=== PATIENT | female | born 1985 | race African-American/Black ===

== ENCOUNTER 2023-04-15 10:07 | Outpatient (REF) | payer MEDICAID, SELFPAY ==
[2023-04-15 11:07] LABS: MANUAL DIFF FLAG NO
[2023-04-15 11:27] LABS: Basophils Percent Auto 0.4 % (0-2); Eosinophils Absolute Auto 0.1 X10*3/uL (0.0-0.4); Eosinophils Percent Auto 1.5 % (0-4); Hematocrit 37.3 % (37.0-47.0); Hemoglobin 11.8 g/dl (12.0-16.0); Imm Gran Abs Auto 0.01 X10*3/uL (0.00-0.03); Imm Gran Pct Auto 0.2 % (0.0-0.4); Lymphocytes Absolute Auto 1.8 X10*3/uL (1.2-4.9); Lymphocytes Percent Auto 38.1 % (20-40); Mean Corpuscular HGB Conc 31.6 g/dl (31.0-35.0); Mean Corpuscular Hemoglobin 26.2 pg (27.0-33.0); Mean Corpuscular Volume 82.7 fL (80.0-98.0); Mean Platelet Volume 12.2 fL (9.4-12.3); Monocytes Absolute Auto 0.5 X10*3/uL (0.1-1.2); Monocytes Percent Auto 9.5 % (2-11); Neutrophils Absolute Auto 2.4 x10*3/uL (2.0-8.3); Neutrophils Percent Auto 50.3 % (45-73); Platelet Count 216 X10*3/uL (160-400); Red Blood Count 4.51 X10*6/uL (4.20-5.50); Red Cell Distribution Width 14.1 % (11.0-16.0); White Blood Count 4.8 X10*3/uL (4.8-10.8)
[2023-04-15 11:30] LABS: Estimated Average Glucose 100 mg/dL; Hemoglobin A1c % 5.1 % (<6.0)
[2023-04-15 12:37] LABS: Alanine Aminotransferase 8 U/L (0-31); Albumin Level 3.9 g/dL (3.5-5.0); Alkaline Phosphatase 57 U/L (39-117); Anion Gap 9 (12-20); Aspartate Amino Transferase 13 U/L (5-31); Bilirubin Total 0.7 mg/dL (0.0-1.0); Blood Urea Nitrogen 14 mg/dL (9-16); Calcium 8.8 mg/dL (8.4-10.2); Carbon Dioxide 25 mmol/L (22-29); Chloride 108 mmol/L (96-108); Estimated Glomerular Filt Rate > 60; Glucose Random 84 mg/dL (60-115); Potassium 3.9 mmol/L (3.3-5.1); Sodium 138 mmol/L (135-145); Total Protein 7.4 g/dL (6.5-8.0)
== END 2023-04-15 10:08 | disposition home or self-care (01) ==
LOC: HO.HHCL 10:07
PROVIDERS: Visit Provider General Practice
DX: M79.672 Pain in left foot (principal)
CPT/HCPCS: 36415; 80053; 83036; 85025

== ENCOUNTER 2023-07-30 09:39 | Outpatient (REF) | payer MEDICAID, SELFPAY ==
[2023-07-30 11:37] LABS: Anion Gap 10 (12-20); Blood Urea Nitrogen 13 mg/dL (9-16); Calcium 9.4 mg/dL (8.4-10.2); Carbon Dioxide 27 mmol/L (22-29); Chloride 107 mmol/L (96-108); Estimated Glomerular Filt Rate > 60; Glucose Random 84 mg/dL (60-115); Potassium 4.5 mmol/L (3.3-5.1); Sodium 139 mmol/L (135-145)
== END 2023-07-30 09:40 | disposition home or self-care (01) ==
LOC: HO.HHCL 09:39
PROVIDERS: Visit Provider Emergency Medicine
DX: E66.3 Overweight (principal)
CPT/HCPCS: 36415; 80048

== ENCOUNTER 2023-08-22 09:05 | Emergency (ER) | payer MEDICAID, SELFPAY ==
[2023-08-22 10:10] VITALS: BP 116/50; PULSE 105; RESP 18; TEMP 37.2; O2SAT 96; BMI 28.3
[2023-08-22 11:12] LABS: IDNOW Serial# 08D9AD1C; Strep A Nucleic Acid Positive (Negative)
[2023-08-22 11:52] LABS: Influenza A PCR NEGATIVE (Negative); Influenza B PCR NEGATIVE (Negative); Resp Syncy Virus RNA Qual PCR NEGATIVE (Negative); SARS COV2 PCR INHOUSE NEGATIVE (Negative)
--- NOTE | 2023-08-22 12:20 | ED.URI ---
HPI - URI/Sore Throat General Chief Complaint: Upper Respiratory Symptoms Stated Complaint: Headache Weakness Fever Etc Time Seen by Provider: 08/22/23 11:57 Source: patient Mode of arrival: ambulatory Limitations: no limitations and language barrier (Creole - livestock handler utilized) History of Present Illness HPI Narrative: patient is a 37-year-old female with past medical history of headache, fever, myalgias, vomiting, sore throat. Symptom onset was 3 days ago. Her is ill with similar symptoms and her children are also ill at home. Related Data Previous Rx's ?Medication ?Instructions ?Recorded amoxicillin 500 mg capsule 1,000 mg (2 x 500 mg) PO DAILY 9 08/22/23 days #18 caps Allergies Allergy/AdvReac Type Severity Reaction Status Date / Time No Known Allergies Allergy Verified 08/22/23 10:13 Review of Systems Review of Systems: Yes all other systems are reviewed and are negative [facility] Past Medical History Attestation statement: The following information was validated with the patient. Source: old records reviewed Physical Exam Vital Signs: Vital Signs: Last Vital Signs Temp 98.9 F 08/22/23 10:10 Pulse 105 H 08/22/23 10:10 Resp 18 08/22/23 10:10 BP 116/50 L 08/22/23 10:10 Pulse Ox 96 08/22/23 10:10 O2 Del Method Room Air 08/22/23 10:10 BMI result Body Mass Index 28.3 Appearance: Alert.?Oriented to person, place and time. No acute distress.?Normal affect. Eyes: Pupils equal, round and reactive to light.? ENT: TM normal bilaterally. Pharynx Erythematous with 2+ tonsillar hypertrophy bilaterally. No exudates. Uvula midline no trismus. No drooling. Neck: Normal inspection.? Neck supple.??No cervical adenopathy CVS: Heart sounds normal. Normal heart rate and rhythm.? Pulses normal.?? Respiratory: No respiratory distress.? Lung sounds clear to auscultation bilaterally?? Abdomen: Soft and non-tender. Normoactive bowel sounds. Skin: Skin warm and dry.? Normal skin color.? ? Extremities: No lower extremity edema.? Neuro: Moves all extremities spontaneously. Sensation intact bilaterally. No motor deficits. Ambulates with normal steady gait. Medical Decision Making Medical Decision Making MDM Narrative: Patient is a 37-year-old female, presenting for evaluation of upper respiratory symptoms. COVID-19 /Influenza/RSV testing negative. Strep a testing positive. Not consistent with peritonsillar retropharyngeal abscess. At this time history and physical exam not consistent with ACS/PE/pneumonia. Well-appearing, nontoxic, afebrile, no tachycardia or tachypnea/hypoxia. Speaking clear full sentences, ambulatory with steady gait. Received initial dose of antibiotic while in the emergency department, remainder prescription sent to pharmacy. Discussed conservative treatment including rest, hydration, Tylenol/ibuprofen as needed for fever and body aches, saline nasal spray, humidifier, aeds-ztx-vkhrgft cold medication. Advised to follow-up with primary care provider as needed, discussed reasons to return back to the emergency department. All questions were answered. Patient discharged home in stable condition. Differential Diagnosis Differential Diagnoses: The differential diagnosis associated with the presentation includes ( See narrative above) Admission/Observation Consideration of admission/observation: Escalation of care including admission/observation considered ( see narrative above) Lab Data MDM Lab Attestation statement: I reviewed the patient's lab results. ( see narrative above) Labs: Lab Results 08/22/23 Range/Units 10:57 Influenza Type A (PCR) NEGATIVE (Negative) Influenza Type B (PCR) NEGATIVE (Negative) RSV RNA Qual (PCR) NEGATIVE (Negative) SARS-CoV-2 RNA (RT-PCR) NEGATIVE (Negative) S. pyogenes GrpA MERRITT Positive A (Negative) Independent Historian Clinical information obtained from an independent historian. History obtained from or confirmed by: Spouse ( present who confirms history) Prescription Management I considered prescription management with: Pain Medication ( acetaminophen/ibuprofen) and Antibiotic Discharge Plan Discharge Clinical Impression: Acute streptococcal pharyngitis Patient Disposition: Home, Self-Care Instructions: Strep Throat (ED) Additional Instructions: You can take ibuprofen 200 mg, 3 tablets (600mg) every 6-8 hours as needed for pain, in addition to Tylenol 500 mg, 2 tablets (1,000mg) every 4-6 hours as needed for pain, but not to exceed 3 doses daily (3,000mg).? Complete entire course of antibiotics as prescribed. Be sure to rest, stay well hydrated drinking plenty of fluids, eat small frequent meals. Guoo-mjn-tlzqrmb cold medications may be helpful as well for symptoms. Saline nasal spray, humidifier may be helpful for nasal congestion. You may return to the emergency department with any new or worsening symptoms or concerns. Follow-up with your primary care provider as needed. Should remain out of school/ work until symptoms have resolved and have been without a fever for 24 hours without the use of Tylenol or ibuprofen. Prescriptions: New amoxicillin 500 mg capsule 1,000 mg PO DAILY 9 Days Qty: 18 0RF Referrals: Physician,None [Primary Care Provider] - Print Language: Slovenian
[2023-08-22] MEDS: Amoxicillin 500 MG CAPSULE 1000 MG PO (12:46)
[2023-08-22 13:15] VITALS: BP 94/60; PULSE 86; RESP 16; TEMP 36.9; O2SAT 97
== END 2023-08-22 13:16 | disposition home or self-care (01) ==
PROVIDERS: Nurse Practitioner Family; Emergency Provider Emergency Medicine
DX: J02.0 Streptococcal pharyngitis (principal)
CPT/HCPCS: 0241U; 87651; 99282; 99283

== ENCOUNTER 2025-03-25 11:49 | Outpatient (REF) | payer MEDICAID, SELFPAY ==
--- NOTE | ~2025-03-25 | XR_ITS ---
EXAMINATION: Bilateral foot. CLINICAL INDICATION: Bilateral foot pain. TECHNIQUE: 3 views each foot. COMPARISON: None. FINDINGS: RIGHT FOOT: Visualized tarsal, metatarsal and phalanges are normal. No fracture or bony abnormality. The joint spaces are maintained normal. The soft tissues are normal. The ankle mortise and subtalar joints are normal. A small retrocalcaneal spur. Incidental finding of a flat arch. LEFT FOOT: The ankle mortise and subtalar joint is normal. A small retrocalcaneal spur. Visualized tarsal, metatarsals and the phalanges and unremarkable. The joint spaces are maintained normal. No fracture or lytic process seen. Incidental finding of a flat arch noted. XR/XR foot RT min 3V IMPRESSION: Bilateral flat arch noted. Bilateral retrocalcaneal spurs. No visible fracture or dislocation or soft tissue swelling. Electronically signed by: Juan Hackett MD 03/25/2025 01:30 PM EST
--- NOTE | ~2025-03-25 | XR_ITS ---
EXAMINATION: Bilateral foot. CLINICAL INDICATION: Bilateral foot pain. TECHNIQUE: 3 views each foot. COMPARISON: None. FINDINGS: RIGHT FOOT: Visualized tarsal, metatarsal and phalanges are normal. No fracture or bony abnormality. The joint spaces are maintained normal. The soft tissues are normal. The ankle mortise and subtalar joints are normal. A small retrocalcaneal spur. Incidental finding of a flat arch. LEFT FOOT: The ankle mortise and subtalar joint is normal. A small retrocalcaneal spur. Visualized tarsal, metatarsals and the phalanges and unremarkable. The joint spaces are maintained normal. No fracture or lytic process seen. Incidental finding of a flat arch noted. XR/XR foot LT min 3V IMPRESSION: Bilateral flat arch noted. Bilateral retrocalcaneal spurs. No visible fracture or dislocation or soft tissue swelling. Electronically signed by: Juan Hackett MD 03/25/2025 01:30 PM EST
--- OUTSIDE RECORDS SUMMARY | 2025-03-25 10:00 | XMS_ITS | Encounter Summary ---
Author Organization [employer] Address [address] [place] [address] Care Team Providers Care Reefer Engineer Name Role Phone Veronica Arthur MD Primary Care Provider + Reason for Referral * Consultation (Routine) - Authorized Specialty Diagnoses / Procedures Referred By Nany mitchell Referred To Contact Ophthalmology Diagnoses Other vascular headache Veronica Arthur MD [address] [place] [address] Phone: tel: fax: [facility] [address] [place] [address] Phone: tel: fax: Referral ID Status Reason Start Date Expiration Date Visits Requested Visits Authorized [id number] Authorized Specialty Services Required 03/25/2025 03/25/2026 1 1 * Imaging (Routine) - Authorized Specialty Diagnoses / Procedures Referred By Contac t Referred To Contact Radiology Diagnoses Other vascular headache Procedures CT Head w/o Contrast Veronica Arthur MD [address] [place] [address] Phone: tel: fax: [facility] [address] [place] [address] Phone: tel: fax: Referral ID Status Reason Start Date Expiration Date V isits Requested Visits Authorized [id number] Authorized 03/25/2025 03/25/2026 1 1 Encounter Details Date Type Department Care Team (Late st Contact Info) Description 03/25/2025 10:00 AM EST Office Visit [facility] MEDICINE [address] [place] [address] Veronica Arthur MD [address] [place] [address] Chronic pain of both feet (Primary Dx); Other vascular headache; Class 1 obesity due to excess calories without serious comorbidity with body mass index (BMI) of 31.0 to 31.9 in adult; Dermatitis of both feet; Encounter for immunization Social History Tobacco Use Types Packs/Day Years Used Date Smoking Tobacco: Never Passive Smoke Exposure: Never Smokeless Tobacco: Never Alcohol Use Standard Drinks/Week Comments Never 0 (1 standard drink = 0.6 oz pur e alcohol) Depression Answer Date Recorded Patient Health Questionnaire-9 Score 0 03/25/2025 Patient Health Questionnaire-9 Score 0 03/25/2025 Last PHQ-9: Questionnaire Data Not on file 1 05/25/2024 Housing Stability Answer Date Recorded What is your housing situation today? I have barbara browne 03/25/[address] you li ve. Do you have problems with any of the following? None of the above 03/25/2025 Food Insecurity Answer Date Recorded Within the past 12 months, y ou worried that your food would run out before you got money to buy more: Never True 03/25/2025 Within the past 12 months,th e food you bought just didn't last and you didn't have enough money to get more: Never True 11/2024 Transportation Answer Date Recorded In the past 12 months, has l ack of transportation kept you from medical appts, meetings, work or from getting things needed for daily living? No 03/25/2025 Utilities Answer Date Recorded In the past 12 months, has t he electric, gas, oil or water company threatened to shut off services in your home? No 03/25/2025 Depression Answer Date Recorded Patient Health Questionnaire-2 Score 0 03/25/2025 Internet Access Answer Date Recorded Internet Access Q1 Yes 03/25/2025 Internet Access Q2 Not on file 03/25/2025 Comments No Sex and Gender Information Value Date Recorded Sex Assigned at Female 04/14/2023 11:24 AM EST Legal Sex Female 11:22 AM EST Gender Identity Female 04/14/2023 11:24 AM EST Sexual Orientation Choose not to disclose 2022 4:54 PM EST documented as of this encounter Last Filed Vital Signs Vital Sign Reading Time Taken Comments Blood Pressure 104/62 03/25/2025 10:14 AM EST Pulse 61 03/25/2025 10:14 AM EST Temperature 36.3 C (97.4 F) 03/25/2025 10:14 AM EST Respiratory Rate 18 03/25/2025 10:14 AM EST Oxygen Saturation 100% 03/25/2025 10:14 AM EST Inhaled Oxygen Concentration - - Weight 85.8 kg (189 lb 3.2 oz) 03/25/2025 10:14 AM EST Height 167.6 cm (5' 6 ) 03/25/2025 10:14 AM EST Body Mass Index 30.54 03/25/2025 10:14 AM EST documented in this encounter Functional Status * Over the past 2 weeks, how often have you been bothered by any of the following problems? Question Answer Date of Assessment Author Patient Health Questionnaire -2 Score 0 03/25/2025 12:22 PM EST Sharonda De La Rosa MA * Little interest or pleasure in doing things Answer Date of Assessment Author Not at all 03/25/2025 12:22 PM EST Sharonda De La Rosa MA * Feeling down, depressed, or hopeless Answer Date of Assessment Author Not at all 03/25/2025 12:22 PM EST Sharonda De La Rosa MA * Trouble falling or staying asleep, or sleeping too much Answer Date of Assessment Author Not at all 03/25/2025 12:22 PM EST Sharonda De La Rosa MA * Feeling tired or having little energy Answer Date of Assessment Author Not at all 03/25/2025 12:22 PM EST Sharonda De La Rosa MA * Poor appetite or overeating Answer Date of Assessment Author Not at all 03/25/2025 12:22 PM EST Sharonda De La Rosa MA * Feeling bad about yourself - or that you are a failure or have let yourself or your family down Answer Date of Assessment Author Not at all 03/25/2025 12:22 PM Sharonda Arnold MA * Trouble concentrating on things, such as reading the newspaper or watching television Answer Date of Assessment Author Not at all 03/25/2025 12:22 PM Sharonda Arnold MA * Moving or speaking so slowly that other people could have noticed? Or the opposite - being so fidgety or restless that you have been moving around a lot more than usual. Answer Date of Assessment Author Not at all 03/25/2025 12:22 PM Sharonda Arnold MA * Thoughts that you would be better off or hurting yourself in some way Answer Date of Assessment Author Not at all 03/25/2025 12:22 PM Sharonda Arnold MA * Patient Health Questionnaire-9 Score Answer Date of Assessment Author 0 03/25/2025 12:22 PM Sharonda Arnold MA * Over the last 2 weeks, how often have you been bothered by any of the following problems? Question Answer Date of Assessment Author Feeling nervous, anxious, or on edge 0 03/25/2025 12:22 PM Sharonda Arnold MA Not being able to stop or co ntrol worrying 0 03/25/2025 12:22 PM Sharonda Arnold MA Worrying too much about diff erent things 0 03/25/2025 12:22 PM Sharonda Arnold MA Trouble relaxing 0 03/25/2025 12:22 PM Sharonda Arnold MA Being so restless that it is hard to sit still 0 03/25/2025 12:22 PM Sharonda Arnold MA Becoming easily annoyed or irritable 0 03/25/2025 12:22 PM Sharonda Arnold MA Feeling afraid as if somethi ng awful might happen 0 03/25/2025 12:22 PM Sharonda Arnold MA FARIDEH-7 Total Score 0 03/25/2025 12:22 PM Sharonda Arnold MA documented as of this encounter Plan of Treatment Upcoming Encounters Date Type Department Care Team (Late st Contact Info) Description 05/30/2025 3:15 PM EST Office Visit [facility] MEDICINE [address] [place] [address] Veronica Arthur MD [address] [place] [address] Scheduled Orders Name Type Priority Associated Diagnoses Orde r Schedule CT Head w/o Contrast Imaging Routine Other vascular headache Ordered: 03/25/2025 CBC auto differential Lab Routine Other vascular headache Expected: 03/25/2025 (Approximate), Expires: 03/25/2026 Comprehensive Metabolic Panel Lab Routine Other vascular headache Expected: 03/25/2025 (Approximate), Expires: 03/25/2026 Hemoglobin A1c Lab Routine Other vascular headache Expected: 03/25/2025 (Approximate), Expires: 03/25/2026 TSH with Reflex to Free T4 Lab Routine Other vascular headache Expected: 03/25/2025 (Approximate), Expires: 03/25/2026 Syphilis Screen Lab Routine Other vascular headache Expected: 03/25/2025 (Approximate), Expires: 03/25/2026 Lipid Panel with Reflex to Direct LDL Lab Routine Class 1 obesity due to excess calories without serious comorbidity with body mass index (BMI) of 31.0 to 31.9 in adult Expected: 03/25/2025 (Approximate), Expires: 03/25/2026 HIV-1/2 Antigen and Antibodies, Fourth Generation, with Reflexes Lab Routine Other vascular headache Expected: 03/25/2025 (Approximate), Expires: 03/25/2026 Hepatitis Panel, General Lab Routine Other vascular headache Expected: 03/25/2025 (Approximate), Expires: 03/25/2026 Vitamin B12/Folate, Serum Panel Lab Routine Chronic pain of both feet Expected: 03/25/2025, Expires: 03/25/2026 Lyme Disease Ab with Reflex to Blot (IgG, IgM) Lab Routine Chronic pain of both feet Expected: 03/25/2025, Expires: 03/25/2026 Scheduled Referrals Name Type Priority Associated Diagnoses Order Schedule Referral to Ophthalmology Outpatient Referral Routine Other vascular headache Expected: 03/25/2025 (Approximate), Expires: 03/25/2026 documented as of this encounter Procedures Procedure Name Priority Date/Time Associated Diagnosis Comments XR FOOT 3+ VIEWS RIGHT Routine 03/25/2025 12:58 PM EST Chronic pain of both feet XR FOOT 3+ VIEWS LEFT Routine 03/25/2025 12:56 PM EST Chronic pain of both feet documented in this encounter Results * XR Foot 3+ Views Right (03/25/2025 12:58 PM EST) Anatomical Region Laterality Modality Lower Extremities, Foot Right Radiogra phic Imaging 03/25/2025 12:5 8 PM EST Narrative 03/25/2025 1:33 PM EST [facility] [address] [place] [address] XRay Report Signed Patient: Larry López MR#: [id number] 7 : 1985 Acct:[id number] Age/Sex: 39 / F ADM Date: 03/25/25 Loc: HO.HHCX Attending Dr: Veronica Arthur MD Ordering Physician: Veronica Arthur MD Date of Service: 03/25/25 Procedure(s): XR foot RT min 3V Accession Number(s): [id number] cc: Veronica Arthur MD Reason for Exam: bl foot pain EXAMINATION: Bilateral foot. CLINICAL INDICATION: Bilateral foot pain. TECHNIQUE: 3 views each foot. COMPARISON: None. FINDINGS: RIGHT FOOT: Visualized tarsal, metatarsal and phalanges are normal. No fracture or bony abnormality. The joint spaces are maintained normal. The soft tissues are normal. The ankle mortise and subtalar joints are normal. A small retrocalcaneal spur. Incidental finding of a flat arch. LEFT FOOT: The ankle mortise and subtalar joint is normal. A small retrocalcaneal spur. Visualized tarsal, metatarsals and the phalanges and unremarkable. The joint spaces are maintained normal. No fracture or lytic process seen. Incidental finding of a flat arch noted. XR/XR foot RT min 3V IMPRESSION: Bilateral flat arch noted. Bilateral retrocalcaneal spurs. No visible fracture or dislocation or soft tissue swelling. Electronically signed by: Juan Hackett MD 03/25/2025 01:30 PM EST Dictated By: Juan Hackett MD Signed By: <Electronically signed by Juan Hackett MD in OV> 03/25/25 1330 DD/ 1258 TD/TT: 03/25/25 1306 Student Driving Instructor: BENITEZ Procedure Note Donotuseinterpreter, Image - 03/25/[address] [address] XRay Report Signed Patient: Larry LópezMR#: [id number] 7 : 1985Acct:[id number] Age/Sex: 39 / FADM Date: 03/25/25 Loc: HO.HHCX Attending Dr: Veronica Arthur MD Ordering Physician: Veronica Arthur MD Date of Service: 03/25/25 Procedure(s): XR foot RT min 3V Accession Number(s): [id number] cc: Veronica Arthur MD Reason for Exam: bl foot pain EXAMINATION: Bilateral foot. CLINICAL INDICATION: Bilateral foot pain. TECHNIQUE: 3 views each foot. COMPARISON: None. FINDINGS: RIGHT FOOT: Visualized tarsal, metatarsal and phalanges are normal. No fracture or bony abnormality. The joint spaces are maintained normal. The soft tissues are normal. The ankle mortise and subtalar joints are normal. A small retrocalcaneal spur. Incidental finding of a flat arch. LEFT FOOT: The ankle mortise and subtalar joint is normal. A small retrocalcaneal spur. Visualized tarsal, metatarsals and the phalanges and unremarkable. The joint spaces are maintained normal. No fracture or lytic process seen. Incidental finding of a flat arch noted. XR/XR foot RT min 3V IMPRESSION: Bilateral flat arch noted. Bilateral retrocalcaneal spurs. No visible fracture or dislocation or soft tissue swelling. Electronically signed by: Juan Hackett MD 03/25/2025 01:30 PM [facility] Dictated By: Juan Hackett MD Signed By: <Electronically signed by Juan Hackett MD in OV> 03/25/25 1330 DD/ 1258 TD/TT: 03/25/25 1306 Student Driving Instructor: BENITEZ Veronica Arthur MD IMG XR PROCEDURES Final Result * XR Foot 3+ Views Left (03/25/2025 12:56 PM EST) Anatomical Region Laterality Modality Lower Extremities, Foot Left Radiogra phic Imaging 03/25/2025 12:5 6 PM EST Narrative 03/25/2025 1:33 PM EST [address] [address] XRay Report Signed Patient: Larry López MR#: [id number] 7 : 1985 Acct:[id number] Age/Sex: 39 / F ADM Date: 03/25/25 [facility]: Veronica Arthur MD Ordering Physician: Veronica Arthur MD Date of Service: 03/25/25 Procedure(s): XR foot LT min 3V Accession Number(s): [id number] cc: Veronica Arthur MD Reason for Exam: bl foot pain EXAMINATION: Bilateral foot. CLINICAL INDICATION: Bilateral foot pain. TECHNIQUE: 3 views each foot. COMPARISON: None. FINDINGS: RIGHT FOOT: Visualized tarsal, metatarsal and phalanges are normal. No fracture or bony abnormality. The joint spaces are maintained normal. The soft tissues are normal. The ankle mortise and subtalar joints are normal. A small retrocalcaneal spur. Incidental finding of a flat arch. LEFT FOOT: The ankle mortise and subtalar joint is normal. A small retrocalcaneal spur. Visualized tarsal, metatarsals and the phalanges and unremarkable. The joint spaces are maintained normal. No fracture or lytic process seen. Incidental finding of a flat arch noted. XR/XR foot LT min 3V IMPRESSION: Bilateral flat arch noted. Bilateral retrocalcaneal spurs. No visible fracture or dislocation or soft tissue swelling. Electronically signed by: Juan Hackett MD 03/25/2025 01:30 PM EST Dictated By: Juan Hackett MD Signed By: <Electronically signed by Juan Hackett MD in OV> 03/25/25 1330 DD/ 1256 TD/TT: 03/25/25 1306 Student Driving Instructor: BENITEZ Procedure Note Donotuseinterpreter, Image - 03/25/[address] [address] XRay Report Signed Patient: Larry LópezMR#: [id number] 7 : 1985Acct:[id number] Age/Sex: 39 / FADM Date: 03/25/25 Loc: HO.HHCX Attending Dr: Veronica Arthur MD Ordering Physician: Veronica Arthur MD Date of Service: 03/25/25 Procedure(s): XR foot LT min 3V Accession Number(s): [id number] cc: Veronica Arthur MD Reason for Exam: bl foot pain EXAMINATION: Bilateral foot. CLINICAL INDICATION: Bilateral foot pain. TECHNIQUE: 3 views each foot. COMPARISON: None. FINDINGS: RIGHT FOOT: Visualized tarsal, metatarsal and phalanges are normal. No fracture or bony abnormality. The joint spaces are maintained normal. The soft tissues are normal. The ankle mortise and subtalar joints are normal. A small retrocalcaneal spur. Incidental finding of a flat arch. LEFT FOOT: The ankle mortise and subtalar joint is normal. A small retrocalcaneal spur. Visualized tarsal, metatarsals and the phalanges and unremarkable. The joint spaces are maintained normal. No fracture or lytic process seen. Incidental finding of a flat arch noted. XR/XR foot LT min 3V IMPRESSION: Bilateral flat arch noted. Bilateral retrocalcaneal spurs. No visible fracture or dislocation or soft tissue swelling. Electronically signed by: Juan Hackett MD 03/25/2025 01:30 PM [facility] Dictated By: Juan Hackett MD Signed By: <Electronically signed by Juan Hackett MD in OV> 03/25/25 1330 DD/ 1256 TD/TT: 03/25/25 1306 Student Driving Instructor: [facility] Veronica Arthur MD IMG XR PROCEDURES Final Result documented in this encounter Visit Diagnoses Diagnosis Chronic pain of both feet- Primary Other vascular headache Class 1 obesity due to excess calories without serious comorbidity with body mass index (BMI) of 31.0 to 31.9 in adult Dermatitis of both feet Encounter for immunization documented in this encounter Additional Health Concerns Assessment Noted Time PHQ-9 Depression Total Score: 0 03/25/20 12:22 PM EST documented as of this encounter Care Teams Reefer Engineer Relationship Specialty Start Date End Date Veronica Arthur MD [address] [place] [id number] PCP - General Internal Medicine 03/25/25 documented as of this encounter
--- OUTSIDE RECORDS SUMMARY | 2025-03-25 14:16 | XMS_ITS | Clinical Summary ---
Author Organization [employer] Address [address] [facility] 7[address] [place] [address] Care Team Providers Care Archivist Political History Name Role Phone Veronica Arthur MD Primary Care Provider + Allergies Active Allergy Reactions Criticality Noted Date Comments [id number]-[id number] 01/23/20 24 Other Anaphylaxis High 12/14/2021 Cough Medication Medications betamethasone valerate (Valisone) 0.1 % cream Apply topically if needed in the morning and at bedtime (dryness). 45 g 2 03/25/20 25 Active amitriptyline (Elavil) 10 MG tablet Take 1 tablet (10 mg) by mouth at bedtime. 90 tablet 1 03/25/20 25 Active cephalexin (Keflex) 500 MG capsule Take 500 mg by mouth 2 times daily. 11/20/19 23 025 Discontinued( erapy completed) metroNIDAZOLE (Flagyl) 500 MG tablet Take 500 mg by mouth 2 times daily. 12/13/19 23 025 Discontinued( erapy completed) neomycin-polym yxin-dexAMETHa sone (Maxitrol) 3.5-61292-4.1 ophthalmic suspension INSTILL 2 DROPS AFFECTED EYE (S) 4 TIMES PER DAY FOR 7 DAYS 06/14/19 025 Discontinued( erapy completed) amitriptyline (Elavil) 10 MG tablet Take 1 tablet (10 mg) by mouth at bedtime. 30 tablet 2 02/01/20 25 025 Discontinued(Re order (will not trigger notification to Pharmacy)) naproxen (Naprosyn) 500 MG tablet Take 1 tablet (500 mg) by mouth if needed in the morning and at bedtime for mild pain or headaches. 60 tablet 02/01/20 25 025 Active Problems Problem Noted Date Diagnosed Date Cephalalgia 03/25/2025 Chronic pain of both feet 03/25/2025 Class 1 obesity due to exces s calories without serious comorbidity with body mass index (BMI) of 31.0 to 31.9 in adult 03/25/2025 Dermatitis of both feet 03/25/2025 Left foot pain 04/14/2023 Assessment & Plan (04/14/2023 5:29 PM EST): D DX: healing hematoma, healing insect bite, healing prior trauma - will obtain baseline labs in anticipation of establishing primary care here - also ordered Eucerin and Clotrimazole for dry skin around foot and in between toes Central abdominal pain 05/17/2022 Overview (04/14/2023): Diffuse, mild since 4 months ago for twins Exam and history c/w musculoskeletal source; patient has received treatment for endometritis and UTI without resolution Normal uterus and adnexa on US Last Assessment & Plan: Discussed with patient the fci recovery process of abdominal wall post twin gestation and delivery; discussed starting with light core exercise Heat and support garments may be helpful Tylenol or ibuprofen may be helpful If no improvement in 3-4 months, return for further work up Encounter for surveillance of injectable contrac eptive 05/01/2022 04/14/2023 Overview (04/14/2023): Depo provera today, follow up in 11-12 weeks Vasectomy info given for patients partner Pelvic pain 02/12/2022 04/14/2023 Overview (04/14/2023): -Could be related to previous uterine incision vs. IUD related pains vs. Other etiologies -Need to rule out dehiscence. Imaging from pelvic MRI currently does not suggest uterine dehiscence -Patient with desired fertility Dehiscence of uterine wound 02/11/202203/20 Overview (04/14/2023): -Concern for uterine dehiscence on ultrasound on 02/11 --> need to rule out -PEL US (02/11): Postoperative changes of the uterus. Small volume complex fluid within the lower uterine endometrial canal extending into the myometrial defect. IUD within the high leftward endometrial cavity. Mildly thickened slightly heterogeneous endometrial lining without increased vascularity. -MRI Pelvis (02/11): Uterus: 17.4 x 8.8 x 6.7 cm. Myometrium: Postoperative changes anterior uterine wall from prior section. There is minimal air in the endometrial canal. Bladder: No wall thickening or mass. Abdominal wall/Musculoskeletal: There are postoperative changes of anterior abdominal wall. IMPRESSION: 1. Heterogeneous thickening of the endometrium within the fundus which demonstrates heterogeneous enhancement on postcontrast imaging concerning for retained products of conception. There is fluid within the endometrial canal which demonstrates increased T1 signal intensity suggesting blood products. state 02/11/2022 04/14/2023 Encounters Date Type Department Care Team Description 03/25/2025 10:00 AM EST Office Visit [facility] [address] [place] [phone] Veronica Arthur MD Chronic pain of both feet (Primary Dx); Other vascular headache; Class 1 obesity due to excess calories without serious comorbidity with body mass index (BMI) of 31.0 to 31.9 in adult; Dermatitis of both feet; Encounter for immunization 03/25/2025 Travel 03/24/2025 Telephone [facility] [address] [place] [phone] Veronica Arthru MD chart prep 03/18/2025 Patient Outreach [facility] [address] [place] [address] Veronica Arthur MD Pre-visit Planning ([facility] unable to reach ) 01/31/2025 1:40 PM EDT Office Visit [facility] [address] [place] [address] Name, MD Denis Migraine without status migrainosus, not intractable, unspecified migraine type (Primary Dx) 01/31/2025 Travel 01/21/2025 Telephone [facility] [address] [place] [address] Summer Young MD No Show 01/20/2025 Telephone [facility] [address], [place] [phone] Summer Young MD chart prep 01/12/2025 Patient Outreach [facility] [address] [place] [address] Summer Young MD Pre-visit Planning ((Unable to reach for PVP screening and or LVM) to be completed in office) from Last 3 Months Immunizations Immunization Administration Dates Next Due Influenza, seasonal, injectable, preservative fr ee 03/25/2025 Social History Tobacco Use Types Packs/Day Years Used Date Smoking Tobacco: Never Passive Smoke Exposure: Never Smokeless Tobacco: Never Tobacco Cessation:Counseling Given: Not Answered Alcohol Use Standard Drinks/Week Comments Never 0 (1 standard drink = 0.6 oz pur e alcohol) Depression Answer Date Recorded Patient Health Questionnaire-9 Score 0 03/25/2025 Patient Health Questionnaire-9 Score 0 03/25/2025 Last PHQ-9: Questionnaire Data Not on file 1 05/25/2024 Housing Stability Answer Date Recorded What is your housing situation today? I have barbaramyesha browne 03/25/[address] you [...] t he electric, gas, oil or water [employer] threatened to shut off services in your [...] not to disclose 2022 4:54 PM EST Last Filed Vital Signs Vital Sign Reading [...] Mass Index 30.54 03/25/2025 10:14 AM EST Plan of Treatment Upcoming Encounters Date Type Department Care Team (Late st Contact Info) Description 05/30/2025 3:15 PM EST Office Visit [facility] [address] [place] [phone] Veronica Arthur MD [address] [place] [address] Health Maintenance Due Date Last Done Comments HIV Screening 1985 Lipid Panel 1985 Disability Screening 1985 Family Planning (PISQ) 2000 HPV Vaccines (1 - 3-dose series) 2000 Hepatitis C Screening 09/24/2003 DTaP/Tdap/Td Vaccines (1 - Tdap) 2004 Hepatitis B Vaccines (1 of 3 - 19+ 3-dose series) 2004 Pap Smear 2006 Cervical Cancer Screening 09/24/2015 HPV/Cotest 09/24/2015 Dental Oral Exam 07/23/2024 01/23/2024 Dental Prophylaxis 07/23/2024 01/23/2024 COVID-19 Vaccine (2023-2 5 season) 2025 Dental X-Ray: Bitewings 01/23/2025 01/23/2024 Alcohol/Substance Use Screening 03/25/2026 03/25/2025 Depression Screening 03/25/2026 03/25/2025, 03/25/2025 SDOH Screening 03/25/2026 03/25/2025 Tobacco Screening 03/25/2026 03/25/2025 Dental X-Ray: Full Mouth 01/23/2027 01/23/2024 Zoster Vaccines (1 of 2) 09/24/2035 RSV Patients and Patients Aged 60 years or older (1 - 1-dose 75+ series) 2060 Influenza Vaccine Completed 03/25/2025 HIB Vaccines Aged Out No longer eligi ble based on patient's age to complete this topic Hepatitis A Vaccines Aged Out No long er eligible based on patient's age to complete this topic IPV Vaccines Aged Out No longer eligi ble based on patient's age to complete this topic Meningococcal B Vaccine Aged Out No l onger eligible based on patient's age to complete this topic Meningococcal Vaccine Aged Out No gilda berenice eligible based on patient's age to complete this topic Pneumococcal Vaccine: Pediatrics (0 to 5 Years) and At-Risk Patients (6 to 49) Years Aged Out No longer eligible b ased on patient's age to complete this topic RSV under 20 months Aged Out No longe r eligible based on patient's age to complete this topic Rotavirus Vaccines Aged Out No longer eligible based on patient's age to complete this topic Procedures Procedure Name Priority Date/Time Associated Diagnosis Comments XR FOOT 3+ VIEWS RIGHT Routine 12:58 PM EST Chronic pain of both feet XR FOOT 3+ VIEWS LEFT Routine 03/25/2025 12:56 PM EST Chronic pain of both feet PROPHYLAXIS - ADULT Routine 01/23/2024 2 :30 PM EDT INTRAORAL - COMPLETE SERIES OF RADIOGRAPHIC IMAGES Routine 01/23/2024 2:30 PM EDT COMPREHENSIVE ORAL EVALUATION - NEW OR ESTABLISHED PATIENT Routine 01/23/2024 2:30 PM EDT Encounter for dental examination Dental caries Dental calculus Periodontal disease Excessive attrition of teeth, limited to enamel from Last 3 Months or Most Recently Relevant to Health Maintenance Results * XR Foot 3+ Views Right (03/25/2025 12:58 PM EST) Anatomical Region Laterality Modality Lower Extremities, Foot Right Radiogra phic Imaging 03/25/2025 12:5 8 PM EST Narrative 03/25/2025 1:33 PM EST [facility] [address] [place] [address] XRay Report Signed Patient: Larry López MR#: [id number] 7 : 1985 Acct:[id number] Age/Sex: 39 / F ADM Date: 03/25/25 Loc: HO.HHCX Attending Dr: Veronica Arthur MD Ordering Physician: Veronica Arthur MD Date of Service: 03/25/25 Procedure(s): XR foot RT min 3V Accession Number(s): [id number] cc: Veronica Arthur MD Reason for Exam: [...] 03/25/25 1330 DD/ 1258 TD/TT: 03/25/25 1306 Fire Control Technician B: BENITEZ Procedure Note Donotkareninterpreter, Image - 03/25/[address] [address] XRay Report Signed Patient: Larry LópezMR#: [id number] 7 : 1985Acct:[id number] Age/Sex: 39 / FADM Date: 03/25/25 Loc: HO.HHCX Attending Dr: Veronica Arthur MD Ordering Physician: Veronica Arthur MD Date of Service: 03/25/25 Procedure(s): XR foot RT min 3V Accession Number(s): [id number] cc: Veronica Arthur MD Reason for Exam: [...] 03/25/25 1330 DD/ 1258 TD/TT: 03/25/25 1306 Fire Control Technician B: BENITEZ Veronica Arthur MD IMG XR PROCEDURES Final Result * XR Foot 3+ Views Left (03/25/2025 12:56 PM EST) Anatomical Region Laterality Modality Lower Extremities, Foot Left Radiogra phic Imaging 03/25/2025 12:5 6 PM EST Narrative 03/25/2025 1:33 PM EST [facility] [address] [place] [address] XRay Report Signed Patient: Larry López MR#: [id number] 7 : 1985 Acct:[id number] Age/Sex: 39 / F ADM Date: 03/25/25 Loc: HO.HHCX Attending Dr: Veronica Arthur MD Ordering Physician: Veronica Arthur MD Date of Service: 03/25/25 Procedure(s): XR foot LT min 3V Accession Number(s): [id number] cc: Veronica Arthur MD Reason for Exam: [...] 03/25/25 1330 DD/ 1256 TD/TT: 03/25/25 1306 Fire Control Technician B: BENITEZ Procedure Note Donotuseinterpreter, Image - 03/25/[address] [address] XRay Report Signed Patient: Larry LópezMR#: [id number] 7 : 1985Acct:[id number] Age/Sex: 39 / FADM Date: 03/25/25 Loc: HO.HHCX Attending Dr: Veronica Arthur MD Ordering Physician: Veronica Arthur MD Date of Service: 03/25/25 Procedure(s): XR foot LT min 3V Accession Number(s): [id number] cc: Veronica Arthur MD Reason for Exam: [...] by: Juan Hackett MD 03/25/2025 01:30 PM [facility] Dictated By: Juan Hackett MD Signed By: <Electronically signed by Juan Hackett MD in OV> 03/25/25 1330 DD/ 1256 TD/TT: 03/25/25 1306 Fire Control Technician B: [facility] Veronica Arthur MD IMG XR PROCEDURES Final Result from Last 3 Months Insurance [place] [facility] MEDICAID STAND ADULT Care Teams Archivist Political History Relationship Specialty Start Date End Date Veronica Arthur MD [address] [place] [phone] PCP - General Internal Medicine 03/25/25
--- OUTSIDE RECORDS SUMMARY | 2025-03-25 14:16 | XMS_ITS | Encounter Summary ---
Author Organization [employer] Address [address] [facility] [address] [place] [address] Care Team Providers Care Performance Engineer Name Role Phone Unavailable Primary Care Provider Unavailabl e Reason for Visit * Reason Onset Date Comments chart prep 03/24/2025 Encounter Details Date Type Department Care Team ([facility] st Contact Info) Description 03/24/2025 Telephone [facility] [address] [place] [address] Veronica Arhtur MD [address] [place] [address] chart prep Social History Tobacco Use Types Packs/Day Years Used Date Smoking Tobacco: Never Passive Smoke Exposure: Never Smokeless Tobacco: Never Depression Answer Date Recorded Patient Health Questionnaire-9 [...] Access Q2 Not on file 03/25/2025 Comments Unknown Sex and Gender Information Value Date Recorded Sex Assigned at Female 04/14/2023 11:24 AM EST Legal Sex Female 11:22 AM EST Gender Identity Female 04/14/2023 11:24 AM EST Sexual Orientation Choose not to disclose 2022 4:54 PM EST documented as of this encounter Miscellaneous Notes * Telephone Encounter - Marely Schmidt MA - 03/24/2025 9:54 AM EST Chart Prep Labs: not applicable Images: not applicable Referrals: complete Vaccines due: Covid, Flu, Tdap, Hep B, and HPV Screenings: pap smear Overdue care gaps: SBIRT, SDOH, PHQ-9, FARIDEH-7, and Disability screen documented in this encounter Plan of Treatment Upcoming Encounters Date Type Department Care Team (Late st Contact Info) Description 05/30/2025 3:15 PM EST Office Visit [facility] [address] [place] [address] Veronica Arthur MD [address] [place] [address] documented as of this encounter Visit Diagnoses Not on filedocumented in this encounter
--- OUTSIDE RECORDS SUMMARY | 2025-03-25 14:16 | XMS_ITS | Clinical Summary ---
Author Organization [facility] Address [address] [place] [address] Care Team Providers Care Fraud Investigator Name Role Phone StephenRui alvaradophilomena AUTO GLASS TECHNICIAN-C Primary Care Provider [phone] Source Comments PLEASE NOTE, if this patient is a minor, it may be UNLAWFUL to discuss sensitive information that is contained in these records (such as FAMILY PLANNING, MENTAL HEALTH or SUBSTANCE ABUSE) with the minor patient's parent or other person without the patient's specific authorization.[facility] Medications metroNIDAZOLE (FLAGYL) 500 mg tabletIndication s:Bacterial vaginosis Take 1 Tablet by mouth 2 (two) times daily 14 Tablet 12/12/2022 Active Social History Tobacco Use Types Packs/Day Years Used Date Smoking Tobacco: Never Passive Smoke Exposure: Never Smokeless Tobacco: Never Tobacco Cessation:Counseling Given: Not Answered Alcohol Use Standard Drinks/Week Comments Not Currently 0 (1 standard drink = 0.6 oz pur e alcohol) Social Connections Answer Date Recorded Connectedness 0 01/31/2024 Financial Resource Strain Answer Date R ecorded Financial Resource Strain 0 2022 Stress Answer Date Recorded Stress 0 12/09/2022 Physical Activity Answer Date Recorded Physical Activity 0 12/09/2022 Food Insecurity Answer Date Recorded Food 0 02/12/2024 Transportation Needs Answer Date Record ed Transportation 0 12/09/2022 Housing Stability Answer Date Recorded Housing 0 12/09/2022 Safety and Environment Answer Date Shashank rded Safety 0 12/09/2022 Utilities Answer Date Recorded Utilities 0 12/09/2022 Employment Answer Date Recorded Stress 0 01/31/2024 Comments No Sex and Gender Information Value Date Recorded Sex Assigned at Female 12/09/2022 6:36 AM PDT Legal Sex Female 11:56 AM PST Gender Identity Female 12/09/2022 6:36 AM PDT Sexual Orientation Straight 12/09/2022 6: 36 AM PDT Last Filed Vital Signs Vital Sign Reading Time Taken Comments Blood Pressure 110/69 12/09/2022 9:24 AM EDT Pulse 93 12/09/2022 9:24 AM EDT Temperature 36.8 C (98.3 F) 12/09/2022 9:24 AM EDT Respiratory Rate 18 12/09/2022 9:24 AM EDT Oxygen Saturation - - Inhaled Oxygen Concentration - - Weight 81.6 kg (180 lb) 12/09/2022 9:24 AM EDT Height - - Body Mass Index - - Plan of Treatment Health Maintenance Due Date Last Done Comments Anxiety Screening 1985 Diabetes Screening 1985 HPV Screening (self-collect) 1985 HPV Screening 1985 Hepatitis C Screening 1985 Pap + HPV 1985 Tobacco Screening 1985 HIV Screening 2000 Relationship Safety Screening/Counseling 2000 Imm-DTaP/Tdap/Td (1 - Tdap) 2004 Imm-Hepatitis B (1 of 3 - 19+ 3-dose series) 5 Cervical Cancer Screening 2006 Pap Smear 2006 Imm-HPV (1 - 3-dose SCDM series) 2012 Hypertension Screening (#1) 12/09/2023 Alcohol and Drug Screen 05/19/2024 Depression Annual Screen 05/19/2024 Nfa-ATDKL-16 ( season) 2025 Imm-Influenza (#1) 2025 Cervical Ablation/Cold-Knife Conization Discontinued Cervical Cryotherapy Discontinued Colposcopy Discontinued Excision/Leep Discontinued HPV Genotyping Discontinued Vaginal Pap Discontinued Vulvoscopy Discontinued Insurance [address] [employer] Care Teams Fraud Investigator Relationship Specialty Start Date End Date Adrian Mitchell FNP-C [address] [place] [address] PCP - General Internal Medicine 03/21/23
--- OUTSIDE RECORDS SUMMARY | 2025-03-25 14:16 | XMS_ITS | Encounter Summary ---
Author Organization [employer] Address [address] [facility] [address] [place] [address] Care Team Providers Care Postage Machine Operator Name Role Phone Veronica Arthur MD Primary Care Provider + Encounter Details Date Type Department Care Team (Latest Contact Info) Description 03/25/2025 Travel Social History Tobacco Use Types Packs/Day Years [...] PM EST documented as of this encounter Functional Status * Over the [...] Sharonda De La Rosa MA * Trouble concentrating on things, such as reading the newspaper or watching television Answer Date of Assessment Author Not at all 03/25/2025 12:22 PM EST Sharonda De La Rosa MA * Moving or speaking so slowly that other people could have noticed? Or the opposite - being so fidgety or restless that you have been moving around a lot more than usual. Answer Date of Assessment Author Not at all 03/25/2025 12:22 PM EST Sharonda De La Rosa MA * Thoughts that you would be [...] Description 05/30/2025 3:15 PM EST Office Visit [facility] [address] [place] [address] Veronica Arthur MD [address] [place] [address] documented as of this encounter Visit Diagnoses Not on filedocumented in this encounter Additional Health Concerns Assessment Noted Time PHQ-9 Depression Total Score: 0 03/25/20 25 12:22 PM EST documented as of this encounter Care Teams Postage Machine Operator Relationship Specialty Start Date End Date Veronica Arthur MD [address] [place] [address] PCP - General Internal Medicine 03/25/25 documented as of this encounter
== END 2025-03-25 11:50 | disposition home or self-care (01) ==
LOC: HO.HHCX 11:49
PROVIDERS: PCP Internal Medicine; Visit Provider Internal Medicine
DX: M79.671 Pain in right foot (principal); M79.672 Pain in left foot; G89.29 Other chronic pain
CPT/HCPCS: 73630

== ENCOUNTER → 2025-03-25 12:36 | Outpatient (BNV) | payer MEDICAID, SELFPAY | PROVIDERS: PCP Internal Medicine; Visit Provider Radiology Diagnostic Radiology | DX: M77.31 Calcaneal spur, right foot (principal); M77.32 Calcaneal spur, left foot; M21.41 Flat foot [pes planus] (acquired), right foot; M21.42 Flat foot [pes planus] (acquired), left foot | CPT/HCPCS: 73630 ==

== ENCOUNTER 2025-04-01 09:17 | Outpatient (REF) | payer MEDICAID, SELFPAY ==
--- OUTSIDE RECORDS SUMMARY | 2025-04-01 10:02 | XMS_ITS | Encounter Summary ---
Author Organization [employer] Address [address] [facility] [address] [place] [address] Care Team Providers Care Cpa Tax Name Role Phone Veronica Arthur MD Primary Care Provider + Encounter Details Date Type Department Care Team ([facility] st Contact Info) Description 03/25/2025 Results Follow-Up [facility] [address] [place], [place] [phone] Veronica Arthur MD [address] [place] [address] XR Foot 3+ Views Right Social History Tobacco Use Types Packs/Day Years [...] 12:22 PM Sharonda Arnold MA * Trouble falling or staying asleep, or sleeping too much Answer Date of Assessment Author Not at all 03/25/2025 12:22 PM Sharonda Arnold MA * Feeling tired or having little energy Answer Date of Assessment Author Not at all 03/25/2025 12:22 PM Sharonda Arnold MA * Poor appetite or overeating Answer Date of Assessment Author Not at all 03/25/2025 12:22 PM Sharonda Arnold MA * Feeling bad about yourself - [...] Arnold MA documented as of this encounter Miscellaneous Notes * Telephone Encounter - Sharonda De La Rosa MA - 03/29/2025 9:33 AM EST XR faxed to podiatry [phone]. Fax was successful & sent to scan * Telephone Encounter - Sharonda De La Rosa MA - 03/29/2025 9:33 AM EST ----- Message from Veronica Arthur MD sent at 03/25/2025 3:04 PM EST ----- X-ray of both feet on 04/07/2025 showed bilateral calcaneal spurs which are probably-at least partially- the culprit of patient's symptoms. She will follow- up with podiatry as scheduled and I will follow-up with her at next visit. No need for additional treatment at this time. MA: Please fax x-rays to podiatry office/re new patient has appointment in 2w ----- Message ----- From: Victoria Lord Results In Sent: 03/25/2025 1:33 PM EST To: Veronica Arthur MD * Result Encounter Note - Veronica Arthur MD - 03/25/2025 3:04 PM EST X-ray of both feet on 04/07/2025 showed bilateral calcaneal spurs which are probably-at least partially- the culprit of patient's symptoms. She will follow- up with podiatry as scheduled and I will follow-up with her at next visit. No need for additional treatment at this time. MA: Please fax x-rays to podiatry office/re new patient has appointment in 2w documented in this encounter Plan of Treatment Upcoming Encounters Date Type Department Care Team (Late st Contact Info) Description 05/30/2025 3:15 PM EST Office Visit [facility] [address] [place] [address] Veronica Arthur MD [address] [place] [address] documented as of this encounter Visit Diagnoses Not on filedocumented in this encounter Additional Health Concerns Assessment Noted Time PHQ-9 Depression Total Score: 0 03/25/20 25 12:22 PM EST documented as of this encounter Care Teams Cpa Tax Relationship Specialty Start Date End Date Veronica Arthur MD [address] [place] [phone] PCP - General Internal Medicine 03/25/25 documented as of this encounter
--- OUTSIDE RECORDS SUMMARY | 2025-04-01 10:02 | XMS_ITS | Clinical Summary ---
Author Organization [employer] Address [address] [facility] [address] [place] [address] Care Team Providers Care Television Production Assistant Name Role Phone Veronica Arthur MD Primary Care Provider + Allergies Active Allergy Reactions Criticality Noted Date Comments Or-Ewcobwmhpm-Fvdkkyllidezu 01/23/20 24 Other Anaphylaxis High 12/14/2021 Cough [...] Discontinued( erapy completed) neomycin-polym yxin-dexAMETHa sone (Maxitrol) 3.5-24727-8.1 ophthalmic suspension INSTILL 2 DROPS AFFECTED EYE [...] Problem Noted Date Diagnosed Date Cephalalgia 03/25/2025 Assessment & Plan (03/25/2025 2:55 PM EST): - Headaches consistent with migraine - Ordered CT scan of the brain to rule out underlying conditions. - Ordered eye exam to rule out vision-related headache triggers. - Advised to continue elevating and NSAIDs as needed until follow-up. Chronic pain of both feet 03/25/2025 Assessment & Plan (03/25/2025 2:54 PM EST): Rule out neuropathy, she has also chronic vascular changes. Patient to follow-up with podiatry in 2 weeks Will check labs to rule out cardiovascular risk factors Class 1 obesity due to exces s calories without serious comorbidity with body mass index (BMI) of 31.0 to 31.9 in adult 03/25/2025 Dermatitis of both feet 03/25/2025 Assessment & Plan (03/25/2025 2:54 PM EST): Prescribed mometasone cream x 2 weeks. Overweight 03/25/2025 Assessment & Plan (03/25/2025 2:56 PM EST): Discussed re weight reduction options including exercise, life style modifications, diet. Recommended to decrease soda and sugary beverage consumption, increase protein intake with meals (at least 1 portion of protein with each meal) to assist with satiety, increase dietary fiber Recommended at least 150 min/week of moderate intensity exercise. Left foot pain 04/14/2023 Assessment & Plan [...] Assessment & Plan: Discussed with patient the prison recovery process of abdominal wall post twin [...] Description 03/25/2025 10:00 AM EST Office Visit [address] [phone] Veronica Arthur MD Chronic pain of both feet (Primary Dx); Other vascular headache; Class 1 obesity due to excess calories without serious comorbidity with body mass index (BMI) of 31.0 to 31.9 in adult; Dermatitis of both feet; Overweight; Encounter for immunization; Dietary counseling; Exercise counseling 03/25/2025 Results Follow-Up [address] [address] Veronica Arthur MD XR Foot 3+ Views Right 03/25/2025 Travel 03/24/[address] [phone] Veronica Arthur MD chart prep 03/18/2025 Patient Outreach [facility] [address] [place], [place] [phone] Veronica Arthur MD Pre-visit Planning (SDOH unable to reach ) 01/31/2025 1:40 PM EDT Office Visit [facility] [address] [place] [phone] Name, MD Denis Migraine without status migrainosus, not intractable, unspecified migraine type (Primary Dx) 01/31/2025 Travel 01/21/[address] [phone] Summer Young MD No Show 01/20/[address] [phone] Summer Young MD chart prep 01/12/2025 Patient Outreach [address] [address] Summer Young MD Pre-visit Planning ((Unable to [...] your housing situation today? I have barbara hollie 03/25/[address] you li [...] Q2 Not on file 03/25/2025 Comments No Intention Date Recorded No desire to become (finding) 1 05/25/2024 Sex and Gender Information Value Date Recorded [...] Description 05/30/2025 3:15 PM EST Office Visit [facility] [address] [place], [place] [phone] Veronica Arthur MD [address] [place], [place] [phone] Health Maintenance Due Date Last Done Comments HIV Screening 1985 Lipid Panel 1985 Disability Screening 1985 HPV Vaccines (1 - 3-dose series) 2000 Hepatitis C Screening 09/24/2003 DTaP/Tdap/Td Vaccines (1 - Tdap) 2004 Hepatitis B Vaccines (1 of 3 - 19+ 3-dose series) 2004 Pap Smear 2006 Cervical Cancer Screening 09/24/2015 HPV/Cotest 09/24/2015 Dental Oral Exam 07/23/2024 01/23/2024 Dental Prophylaxis 07/23/2024 01/23/2024 COVID-19 Vaccine ( - 2024-2 6 season) 2025 Dental X-Ray: Bitewings 01/23/2025 01/23/2024 Alcohol/Substance Use Screening 03/25/2026 03/25/2025 Depression Screening 03/25/2026 03/25/2025, 03/25/2025 Family Planning (PISQ) 03/25/2026 03/25/2025 SDOH Screening 03/25/2026 03/25/2025 Tobacco Screening [...] PM EST Narrative 03/25/2025 1:33 PM EST [address] [address] XRay Report Signed Patient: Larry López MR#: [id number] 7 : 1985 Acct:[id number] Age/Sex: 39 / F ADM Date: 03/25/25 Loc: [facility] Attending Dr: Veronica Arthur MD Ordering Physician: Veronica Arthur MD Date of Service: 03/25/25 Procedure(s): XR foot RT min 3V Accession Number(s): [id number] cc: Veronica Arthur MD Reason for Exam: [...] by: Juan Hackett MD 03/25/2025 01:30 PM [facility] Dictated By: Juan Hackett MD Signed By: <Electronically signed by Juan Hackett MD in OV> 03/25/25 1330 DD/ 1258 TD/TT: 03/25/25 1306 Airplane Electrician: [facility] Procedure Note Donotuseinterpreter, Image - 03/25/[address] [address] XRay Report Signed Patient: Larry LópezMR#: [id number] 7 : 1985Acct:[id number] Age/Sex: 39 / FADM Date: 03/25/25 [facility] Att[facility] Dr: Veronica Arthur MD Ordering Physician: Veronica Arthur MD Date of Service: 03/25/25 Procedure(s): XR foot RT min 3V Accession Number(s): [id number] cc: Veronica Arthur MD Reason for Exam: [...] 03/25/25 1330 DD/ 1258 TD/TT: 03/25/25 1306 Airplane Electrician: [facility] Veronica Arthur MD IMG XR PROCEDURES Final Result * XR Foot 3+ Views Left (03/25/2025 12:56 PM EST) Anatomical Region Laterality Modality Lower Extremities, Foot Left Radiogra phic Imaging 03/25/2025 12:5 6 PM EST Narrative 03/25/2025 1:33 PM EST [address] [address] XRay Report Signed Patient: Larry López MR#: [id number] 7 : 1985 Acct:[id number] Age/Sex: 39 / F ADM Date: 03/25/25 Loc: [facility] Attending Dr: Veronica Arthur MD Ordering Physician: Veronica Arthur MD Date of Service: 03/25/25 Procedure(s): XR foot LT min 3V Accession Number(s): [id number] cc: Veronica Arthur MD Reason for Exam: [...] by: Juan Hackett MD 03/25/2025 01:30 PM [facility] Dictated By: Juan Hackett MD Signed By: <Electronically signed by Juan Hackett MD in OV> 03/25/25 1330 DD/ 1256 TD/TT: 03/25/25 1306 Airplane Electrician: [facility] Procedure Note Donotuseinterpreter, Image - 03/25/[address] [address] XRay Report Signed Patient: Ned López#: [id number] 7 : 1985Acct:[id number] Age/Sex: 39 / FADM Date: 03/25/25 Loc: [facility] Attending Dr: Veronica Arthur MD Ordering Physician: Veronica Arthur MD Date of Service: 03/25/25 Procedure(s): XR foot LT min 3V Accession Number(s): [id number] cc: Veronica Arthur MD Reason for Exam: [...] by: Juan Hackett MD 03/25/2025 01:30 PM [facility] Dictated By: Juan Hackett MD Signed By: <Electronically signed by Juan Hackett MD in OV> 03/25/25 1330 DD/ 1256 TD/TT: 03/25/25 1306 Airplane Electrician: [facility] Veronica Arthur MD IMG XR PROCEDURES Final Result from Last 3 Months Insurance [facility] ST[place] ADULT Care Teams Television Production Assistant Relationship Specialty Start Date End Date Veronica Arthur MD [address] [place] [phone] PCP - General Internal Medicine 03/25/25
[2025-04-01 11:25] LABS: MANUAL DIFF FLAG NO
[2025-04-01 11:50] LABS: Hematocrit 38.4 % (37.0-47.0); Hemoglobin 12.0 g/dl (12.0-16.0); Imm Gran Abs Auto 0.01 X10*3/uL (0.00-0.03); Imm Gran Pct Auto 0.2 % (0.0-0.4); Lymphocytes Absolute Auto 2.3 X10*3/uL (1.2-4.9); Mean Corpuscular HGB Conc 31.3 g/dl (31.0-35.0); Mean Corpuscular Hemoglobin 25.6 pg (27.0-33.0); Mean Corpuscular Volume 82.1 fL (80.0-98.0); NRBC Abs Auto 0.000 X10*3/uL (0.0-0.012); NRBC Pct Auto 0.0 /100WBC (0.0-0.2); Platelet Count 243 X10*3/uL (160-400); Red Blood Count 4.68 X10*6/uL (4.20-5.50); White Blood Count 5.9 X10*3/uL (4.8-10.8)
[2025-04-01 12:05] LABS: HBS Num1 0.91 mIU/mL (0-7.99); HBc Num1 0.10 S/CO (0.00-0.79); HBsAGNum1 0.35 S/CO (0.00-0.99); HIV Num 1 0.05 S/CO (0.00-0.99); Hepatitis A Antibody IgM 0.33 Index (0-0.79); Hepatitis B Surface Antigen Negative (Negative); ~HepC Num1 0.11 S/CO (0.00-0.79); ~Hepatitis A Antibody IgM Nonreactive (Nonreactive); ~Hepatitis B Surface Antibody NONREACTIVE (Nonreactive); ~Hepatitis C Antibody Nonreactive (Nonreactive)
[2025-04-01 12:22] LABS: Alanine Aminotransferase 12 U/L (0-31); Albumin Level 4.3 g/dL (3.5-5.0); Alkaline Phosphatase 63 U/L (39-117); Anion Gap 9 (12-20); Aspartate Amino Transferase 19 U/L (5-31); Blood Urea Nitrogen 23 mg/dL (9-16); Calcium 9.0 mg/dL (8.4-10.2); Carbon Dioxide 24 mmol/L (22-29); Chloride 111 mmol/L (96-108); Cholesterol 194 mg/dL (<200); Estimated Glomerular Filt Rate > 60; HDL Cholesterol 43 mg/dL (>40); Potassium 4.1 mmol/L (3.3-5.1); Sodium 140 mmol/L (135-145); Total Protein 7.4 g/dL (6.5-8.0); Triglycerides 76 mg/dL (<150)
[2025-04-01 12:31] LABS: Syphilis Screen Nonreactive (Nonreactive)
[2025-04-01 12:38] LABS: Reflex LDLD? No
[2025-04-01 12:44] LABS: Folate 9.0 ng/mL (> or = 4.0); Vitamin B12 499 pg/mL (200-900)
[2025-04-01 13:21] LABS: Free T4 (Free Thyroxine) 1.06 ng/dL (0.71-1.85)
[2025-04-02 06:28] LABS: Lyme Abs Screen <0.90 index
== END 2025-04-01 09:18 | disposition home or self-care (01) ==
LOC: HO.HHCL 09:17
PROVIDERS: PCP Internal Medicine; Visit Provider Internal Medicine
DX: Z11.4 Encounter for screening for human immunodeficiency virus [HIV] (principal); Z20.6 Contact with and (suspected) exposure to human immunodeficiency virus [HIV]; Z11.59 Encounter for screening for other viral diseases; Z20.5 Contact with and (suspected) exposure to viral hepatitis; M79.671 Pain in right foot; M79.672 Pain in left foot; G44.1 Vascular headache, not elsewhere classified; G89.29 Other chronic pain; Z68.31 Body mass index [BMI] 31.0-31.9, adult; E66.811 Obesity, class 1
CPT/HCPCS: 36415; 80053; 80061; 82607; 82746; 83036; 84439; 84443; 85025; 86617; 86618; 86704; 86706; 86709; 86780; 86803; 87340; 87389

== ENCOUNTER 2025-04-18 14:14 | Outpatient (REF) | payer MEDICAID, SELFPAY ==
[2025-04-18 17:03] LABS: Free T4 (Free Thyroxine) 1.11 ng/dL (0.71-1.85); Thyroid Stimulating Hormone 0.40 uIU/mL (0.32-4.0)
--- OUTSIDE RECORDS SUMMARY | 2025-04-18 17:36 | XMS_ITS | Clinical Summary ---
Author Organization [facility] Address [address] [place] [address] Phone Care Team Providers Care Electric Mule Operator Name Role Phone Physician, Pcp Unknown Primary Care Provider Maria T vailable Allergies No known active allergies Medications terbinafine (LamISIL) 250 mg tablet Take 1 tablet (250 mg total) by mouth 1 (one) time each day. 30 tablet 2 04/11/2025 Active Hospital, Clinic, or Other Facility Administered Medication Ordered Dose Route Frequency Start Date End Date Status lidocaine (PF) (XYLOCAINE-MPF) 1 % injection 0.5 mLIndications:Gangli on cyst of left foot .5 mL Once PRN Procedure 04/11/2025 04/11/2025 Ended triamcinolone acetonide (KENALOG-40) 40 mg/mL injection 20 mgIndications:Gangli on cyst of left foot 20 mg Once PRN Procedure 04/11/2025 04/11/2025 Ended Encounters Date Type Department Care Team Description 04/11/2025 3:15 PM EST Office Visit [facility] [address] [place] [phone] Denny Dupree, DPM Dermatophytosis of nail (Primary Dx); Tinea pedis of both feet; Ganglion cyst of left foot from Last 3 Months Social History Tobacco Use Types Packs/Day Years Used Date Smoking Tobacco: Never Assessed Comments Unknown Sex and Gender Information Value Date Recorded Sex Assigned at Not on file Legal Sex Female 11:10 AM EDT Gender Identity Not on file Sexual Orientation Not on file Plan of Treatment Upcoming Encounters Date Type Department Care Team ([facility] st Contact Info) Description 05/24/2025 2:15 PM EST Office Visit [facility] [address] [address] [place] [phone] Denny Dupree, DPM [address] [phone] Health Maintenance Due Date Last Done Comments DTaP,Tdap,and Td Vaccines (1 - Tdap) 2004 Hepatitis B Vaccines (1 of 3 - 19+ 3-dose series) 2004 Cervical Cancer Screening: P ap Smear 2006 HPV Vaccines (1 - 3-dose SCD M series) 2012 Depression Screening 05/19/2024 Cholesterol Screening (Lipid Panel) 11/04/2024 Social Influencers of Health Screening 11/04/2024 COVID-19 Vaccine (1 - 2024-2 6 season) 2025 RSV Immunization Adult Patie nts (1 - 1-dose 75+ series) 2060 Hepatitis C Screening Completed 12/14/2021 Influenza Vaccine Completed 03/25/2025 HIV Screening Completed 04/01/2025 HIB Vaccines Aged Out No longer eligi ble based on patient's age to complete this topic Hepatitis A Vaccines Aged Out No long er eligible based on patient's age to complete this topic IPV Vaccines Aged Out No longer eligi ble based on patient's age to complete this topic MMR Vaccines Aged Out No longer eligi ble based on patient's age to complete this topic Meningococcal ACWY Vaccine Aged Out N o longer eligible based on patient's age to complete this topic Meningococcal B Vaccine Aged Out No l onger eligible based on patient's age to complete this topic Pneumococcal Vaccine: Pediat rics (0 to 5 Years) and At-Risk Patients (6 to 49 Years) Aged Out No longer eligi ble based on patient's age to complete this topic RSV Immunization Patients Un marcus 20 months Aged Out No longer eligible b ased on patient's age to complete this topic Varicella Vaccines Aged Out No longer eligible based on patient's age to complete this topic Procedures Procedure Name Priority Date/Time Associated Diagnosis Comments INJECTION TENDON OR LIGAMENT Routine 04/11/2025 3:15 PM EST Ganglion cyst of left foot from Last 3 Months Results * Injection tendon or ligament (04/11/2025 3:15 PM EST) Denny Mello DPM - 04/11/2025 3:15 PM EST Denny Dupree DPM 04/11/2025 6:03 PM Injection tendon or ligament Indications: pain Details: 25 G needle Medications: 0.5 mL lidocaine (PF) 1 %; 20 mg triamcinolone acetonide 40 mg/mL Informed Consent: Site: Foot ligament tendon Denny Dupree DPM IN CLINIC/BEDSIDE ORDERAB LES Final Result from Last 3 Months Insurance Care Teams Electric Mule Operator Relationship Specialty Start Date End Date Physician, Pcp Unknown PCP - General 11/04/24
--- OUTSIDE RECORDS SUMMARY | 2025-04-18 17:36 | XMS_ITS | Encounter Summary ---
Author Organization [employer] Address [address] [facility] [address] [place] [address] Care Team Providers Care Liberal Arts Dean Name Role Phone Veronica Arthur MD Primary Care Provider + Encounter Details Date Type Department Care Team (Latest Contact Info) Description 04/18/2025 Travel Social History Tobacco Use Types Packs/Day [...] PM EST documented as of this encounter Plan of Treatment Upcoming Encounters Date Type Department Care Team (Late st Contact Info) Description 05/30/2025 3:15 PM EST Office Visit [facility] [address] [place] [phone] Veronica Arthur MD [address] [place] [phone] documented as of this encounter Visit Diagnoses Not on filedocumented in this encounter Additional Health Concerns Assessment Noted Time PHQ-9 Depression Total Score: 0 03/25/20 12:22 PM EST documented as of this encounter Care Teams Liberal Arts Dean Relationship Specialty Start Date End Date Veronica Arthur MD [address] [place] [phone] PCP - General Internal Medicine 03/25/25 documented as of this encounter
--- OUTSIDE RECORDS SUMMARY | 2025-04-18 17:36 | XMS_ITS | Clinical Summary ---
Author Organization [employer] Address [address] [facility] [address] [place] [address] Care Team Providers Care Dry Box Tender Name Role Phone Veronica Arthur MD Primary Care Provider + Allergies Active Allergy Reactions Criticality Noted Date Comments Kb-Uxccnfloio-Ilmjabocsmjei 01/23/20 24 Other Anaphylaxis High 12/14/2021 Cough [...] Discontinued( erapy completed) neomycin-polym yxin-dexAMETHa sone (Maxitrol) 3.5-54829-9.1 ophthalmic suspension INSTILL 2 DROPS AFFECTED EYE (S) 4 TIMES PER DAY FOR 7 DAYS 06/14/19 025 Discontinued( erapy completed) amitriptyline (Elavil) 10 MG tablet Take 1 tablet (10 mg) by mouth at bedtime. 30 tablet 2 02/01/20 25 025 Discontinued(Re order (will not trigger notification to Pharmacy)) Active Problems Problem Noted Date Diagnosed Date [...] in between toes Central abdominal pain 05/17/2022 3 Overview (04/14/2023): Diffuse, mild since 4 months ago for twins Exam and history c/w musculoskeletal source; patient has received treatment for endometritis and UTI without resolution Normal uterus and adnexa on US Last Assessment & Plan: Discussed with patient the [facility] recovery process of abdominal wall post twin [...] Encounters Date Type Department Care Team Description 04/18/2025 Travel 04/01/2025 Orders Only [address] [address] Veronica Arthur MD 03/25/2025 10:00 AM EST Office Visit [address] [address] Veronica Arthur MD Chronic pain of both feet (Primary Dx); Other vascular headache; Class 1 obesity due to excess calories without serious comorbidity with body mass index (BMI) of 31.0 to 31.9 in adult; Dermatitis of both feet; Overweight; Encounter for immunization; Dietary counseling; Exercise counseling 03/25/2025 Results Follow-Up [address] [address] Veronica Arthur MD XR Foot 3+ Views Right, CBC auto differential, Comprehensive Metabolic Panel, Additional followed-up results: 8 03/25/2025 Travel 03/24/[address] [address] Veronica Arthur MD chart prep 03/18/2025 Patient Outreach [facility] [address] [place], [place] [phone] Veronica Arthur MD Pre-visit Planning ([facility] unable to reach ) 01/31/2025 1:40 PM EDT Office Visit [facility] [address] [place] [phone] Name, MD Denis Migraine without status migrainosus, not intractable, unspecified migraine type (Primary Dx) 01/31/2025 Travel 01/21/[address] [address] Summer Young MD No Show 01/20/[address] [phone] Summer Young MD chart prep from Last 3 Months Immunizations Immunization Administration [...] Description 05/30/2025 3:15 PM EST Office Visit [facility] [address] [place] [address] Veronica Arthur MD [address] [place], [place] [phone] Health Maintenance Due Date Last Done Comments Disability Screening 1985 HPV Vaccines (1 - 3-dose series) 2000 DTaP/Tdap/Td Vaccines (1 - Tdap) 2004 Hepatitis B Vaccines (1 of 3 - 19+ 3-dose series) 2004 Pap Smear 2006 Cervical Cancer Screening 09/24/2015 HPV/Cotest 09/24/2015 Dental Oral Exam 07/23/2024 01/23/2024 Dental Prophylaxis 07/23/2024 01/23/2024 COVID-19 Vaccine (1 - 2024-2 6 season) 2025 Dental X-Ray: Bitewings 01/23/2025 01/23/2024 Alcohol/Substance Use Screening 03/25/2026 03/25/2025 Depression Screening 03/25/2026 03/25/2025, 03/25/2025 Family Planning (PISQ) 03/25/2026 03/25/2025 SDOH Screening 03/25/2026 03/25/2025 Tobacco Screening 03/25/2026 03/25/2025 Dental X-Ray: Full Mouth 05/29/2027 025, 01/23/2024 Lipid Panel 04/01/2030 04/01/2025 Zoster Vaccines (1 of 2) 09/24/2035 RSV Patients and Patients Aged 60 years or older (1 - 1-dose 75+ series) 2060 Influenza Vaccine Completed 03/25/2025 HIV Screening Completed 04/01/2025 Hepatitis C Screening Completed 04/01/2025 HIB Vaccines Aged Out [...] Procedure Name Priority Date/Time Associated Diagnosis Comments T4 (THYROXINE), TOTAL Routine 04/18/2025 2:18 PM EST Abnormal thyroid blood test TSH Routine 04/18/2025 2:18 PM EST Abnormal thyroid blood test T4, FREE Routine 04/18/2025 2:18 PM EST Abnormal thyroid blood test T4, FREE Routine 04/01/2025 9:36 AM EST LYME DISEASE AB W/REFL TO BLOT (IGG, IGM) Routine 04/01/2025 9:36 AM EST Chronic pain of both feet VITAMIN B12/FOLATE, SERUM PANEL Routine 04/01/2025 9:36 AM EST Chronic pain of both feet HEPATITIS PANEL, GENERAL Routine 04/01/2025 9:36 AM EST Other vascular headache HIV 1/2 ANTIGEN/ANTIBODY, FOURTH GENERATION W/RFL Routine 04/01/2025 9:36 AM EST Other vascular headache LIPID PANEL WITH REFLEX TO DIRECT LDL Routine 04/01/2025 9:36 AM EST Class 1 obesity due to excess calories without serious comorbidity with body mass index (BMI) of 31.0 to 31.9 in adult SYPHILIS SCREEN Routine 04/01/2025 9:36 AM EST Other vascular headache TSH W/REFLEX TO FT4 Routine 04/01/2025 9 :36 AM EST Other vascular headache HEMOGLOBIN A1C Routine 04/01/2025 9:36 AM EST Other vascular headache COMPREHENSIVE METABOLIC PANEL Routine 04/01/2025 9:36 AM EST Other vascular headache CBC WITH AUTO DIFFERENTIAL Routine 04/01/2025 9:36 AM EST Other vascular headache XR FOOT 3+ VIEWS RIGHT Routine 12:58 [...] Recently Relevant to Health Maintenance Results * TSH (04/18/2025 2:18 PM EST) Thyroid Stimulating Hormone 0.40 0.32 - 4.0 uIU/mL [facility] Comment:TSH 3rd Generation ( [facility]) Blood Venous blood specimen / Unknown 04/18/2025 2:18 PM EST 04/18/2025 4:11 PM EST us Veronica Arthur MD LAB BLOOD ORDERABLES Fin al Result [facility] [address] [place] [phone] * T4, Free (04/18/2025 2:18 PM EST) Only the most recent of2 resultswithin the time period is included. Free T4 (Free Thyroxine) 1.11 0.71 - 1.85 ng/dL [facility] Blood Venous blood specimen / Unknown 04/18/2025 2:18 PM EST 04/18/2025 4:11 PM EST Veronica Arthur MD LAB BLOOD ORDERABLES Fin al Result Performing Organization Address [facility]/ZIP Co de Phone Number [facility] [address] [place] [phone] * T4 (Thyroxine), Total (04/18/2025 2:18 PM EST) T4 Thyroxine 9.5 4.5 - 12.0 ug/dL [facility] Blood Venous blood specimen / Unknown 04/18/2025 2:18 PM EST 04/18/2025 4:11 PM EST Veronica Arthur MD LAB BLOOD ORDERABLES Fin al Result Performing Organization Address [facility]/ZIP Co de Phone Number [facility] [address] [place] [phone] * Syphilis Screen (04/01/2025 9:36 AM EST) Syphilis Screen Nonreactive Nonreactive [facility] Blood 04/01/2025 9:36 AM EST 04/01/2025 11:16 AM EST Veronica Arthur MD LAB BLOOD ORDERABLES Fin al Result Performing Organization Address City/[facility]/ZIP Co de Phone Number [facility] [address] [place] [phone] * Vitamin B12/Folate, Serum Panel (04/01/2025 9:36 AM EST) Pathologist [facility] Vitamin B12 499 200 - 900 pg/mL [facility] Comment:NORMAL 200-900 PG/ML INDETERMINATE 160-199 PG/ML DEFICIENT < 160 PG/ML Folate 9.0 > or = 4.0 ng/mL [facility] Comment:Reference Values:> o r = 4.0 ng/mL< 4.0 ng/mL suggests folate deficiency Methotrexate, aminopterin and folinic acid(leucovorin) are chemotherapeutic agents whose molecularstructures are similar to folate; therefore, the Architectfolate assay cannot be used for patients using these drugs. Blood Venous blood specimen / Unknown 04/01/2025 9:36 AM EST 04/01/2025 11:16 AM EST Veronica Arthur MD LAB BLOOD ORDERABLES Fin al Result Performing Organization Address [facility] Co de Phone Number [facility] [address] [place] [phone] * (ABNORMAL) TSH with Reflex to Free T4 (04/01/2025 9:36 AM EST) Pathologist [facility] TSH reflex Free T4 0.30(L) 0.32 - 4.0 uIU/mL [facility] Blood 04/01/2025 9:36 AM EST 04/01/2025 11:16 AM EST Veronica Arthur MD LAB BLOOD ORDERABLES Fin al Result Performing Organization Address [facility] Co de Phone Number [facility] [address] [place] [phone] * Lyme Disease Ab with Reflex to Blot (IgG, IgM) (04/01/2025 9:36 AM EST) Pathologist [facility] Lyme Antibody Screen <0.90 index [facility] Comment:Index Interpretatio n ----- < 0.90 Negative 0.90-1.09 Equivocal > 1.09 PositiveAs recommended by the Food and Drug Administration(FDA), all samples with positive or equivocalresults in a Borrelia burgdorferi antibody screenwill be tested using a blot method. Positive orequivocal screening test results should not beinterpreted as truly positive until verified as suchusing a supplemental assay (e.g., B. burgdorferi blot).The screening test and/or blot for B. burgdorferiantibodies may be falsely negative in early stagesof Lyme disease, including the period when erythemamigrans is apparent.THIS TEST WAS PERFORMED AT:[employer] [place] [phone] MONTEJO MD Lyme Blot TNP [facility] 04/01/2025 9:36 AM EST 04/01/2025 11:16 AM EST us Veronica Arthur MD LAB BLOOD ORDERABLES Fin al Result [facility] [address] [place] [phone] * (ABNORMAL) Lipid Panel with Reflex to Direct LDL (04/01/2025 9:36 AM EST) Triglycerides 76 <150 mg/dL [facility] Comment:Desirable Triglyceri de: less than 150 mg/dLBorderline High Triglyceride 150-199 mg/dLHigh Triglyceride: 200-499 mg/dLVery High Triglyceride: greater than or equal to 5OO mg/dL Cholesterol 194 <200 mg/dL [facility] Comment:Desirable Cholestero l: less than 200 mg/dLBorderline High Cholesterol: 200-239 mg/dLHigh Cholesterol: greater than 239 mg/dL LDL Cholesterol Calculated 136(H) <100 mg/dL [facility] Comment:Desirable LDL: less than 100 mg/dLNear Optimal/Above Optimal LDL: 110- 129 mg/dLBorderline High LDL: 130-159 mg/dLHigh LDL: 160-189 mg/dLVery High LDL: greater than or equal to 190 mg/dL HDL Cholesterol 43 >40 mg/dL [facility] Comment:Desirable HDL: great er than 40 mg/dL Note: This HDL assay may give artificially low results in patients with liver disease. Blood 04/01/2025 9:36 AM EST 04/01/2025 11:16 AM EST Veronica Arthur MD LAB BLOOD ORDERABLES Fin al Result Performing Organization Address [facility]/ZIP Co de Phone Number [facility] [address] [place] [phone] * Hepatitis Panel, General (04/01/2025 9:36 AM EST) Hepatitis A IgM Nonreactive Nonreactive [facility] Comment:IgM antibodies to MOORE V not detected; does not exclude earlyacute or recovered HAV infection. ~Hepatitis B Surface Antibody NONREACTIVE Nonreactive [facility] Comment:Nonreactive: < 8.00 mIU/mL Hepatitis B Core Antibody Nonreactive Nonreactive [facility] Hepatitis C Antibody Nonreactive Nonreactive [facility] Comment:Antibodies to HCV no t detected; does not exclude early acuteHCV infection. Hepatitis B Surface Ag Negative Negative [facility] Blood 04/01/2025 9:36 AM EST 04/01/2025 11:16 AM EST Veronica Arthur MD LAB BLOOD ORDERABLES Fin al Result Performing Organization Address City/[facility]/ZIP Co de Phone Number [facility] [address] [place] [phone] * (ABNORMAL) CBC auto differential (04/01/2025 9:36 AM EST) White Blood Count 5.9 4.8 - 10.8 X10*3/uL [facility] Red Blood Count 4.68 4.20 - 5.50 X10*6/uL [facility] Hemoglobin 12.0 12.0 - 16.0 g/dl [facility] Hematocrit 38.4 37.0 - 47.0 % [facility] Mean Corpuscular Volume 82.1 80.0 - 98.0 fL [facility] Mean Corpuscular Hemoglobin 25.6(L) 27.0 - 33.0 pg [facility] Mean Corpuscular HGB Conc 31.3 31.0 - 35.0 g/dl [facility] Red Cell Distribution Width 13.9 11.0 - 16.0 % [facility] Platelet Count 243 160 - 400 X10*3/uL [facility] Mean Platelet Volume 12.1 9.4 - 12.3 fL [facility] Neutrophils Percent Auto 54.4 45 - 73 % [facility] Imm Gran Pct Auto 0.2 0.0 - 0.4 % [facility] Lymphocytes Percent Auto 39.1 20 - 40 % [facility] Monocytes Percent Auto 4.6 2 - 11 % [facility] Eosinophils Percent Auto 1.4 0 - 4 % [facility] Basophils Percent Auto 0.3 0 - 2 % [facility] NRBC Pct Auto 0.0 0.0 - 0.2 /100WBC [facility] Neutrophils Absolute Auto 3.2 2.0 - 8.3 x10*3/uL [facility] Imm Gran Abs Auto 0.01 0.00 - 0.03 X10*3/uL [facility] Lymphocytes Absolute Auto 2.3 1.2 - 4.9 X10*3/uL [facility] Monocytes Absolute Auto 0.3 0.1 - 1.2 X10*3/uL [facility] Eosinophils Absolute Auto 0.1 0.0 - 0.4 X10*3/uL [facility] Basophils Absolute Auto 0.0 0.0 - 0.2 X10*3/uL [facility] NRBC Abs Auto 0.000 0.0 - 0.012 X10*3/uL [facility] Blood Venous blood specimen / Unknown 04/01/2025 9:36 AM EST 04/01/2025 11:16 AM EST us Veronica Arthur MD LAB BLOOD ORDERABLES Fin al Result [facility] [address] [place] [phone] * HIV-1/2 Antigen and Antibodies, Fourth Generation, with Reflexes (04/01/2025 9:36 AM EST) HIV AB/AG Nonreactive Nonreactive [facility] Comment:HIV-1 p24 Ag and/or HIV-1/HIV-2 Ab not detected.A test result that is nonreactive does not exclude thepossibility of exposure to or infection with HIV-1 and/orHIV-2. Nonreactive results in this assay for individualswith prior exposure to HIV-1 and/or HIV-2 may be due toantigen and antibody levels that are below the limit ofdetection of this assay.The [employer] HIV Ag/Ab Combo assay result andsupplemental assay results should be interpreted inconjunction with the patient's clinical presentation,history and other laboratory results. If the results areinconsistent with clinical evidence, additional testing issuggested to confirm the result. Blood Venous blood specimen / Unknown 04/01/2025 9:36 AM EST 04/01/2025 11:16 AM EST us Veronica Arthur MD LAB BLOOD ORDERABLES Fin al Result Performing Organization Address [facility]/ZIP Co de Phone Number [facility] [address] [place] [phone] * Hemoglobin A1c (04/01/2025 9:36 AM EST) Hemoglobin A1c 5.4 <6.0 % [facility] Comment:Hemoglobin A1C Refer ence Range Adults: 4.8 - 6.0 % Non diabetic: < 6.0 % Goal: < 7.0 %Additional Action Suggested: > 8.0 %Note: Hemoglobin A1c results are invalid for patients with abnormal amounts of HbF. Blood transfusions may impact the HbA1c concentration in the patient sample. Estimated Average Glucose 108 mg/dL [facility] Comment:eAG = Estimated ave rage glucose which is %A1C expressed asaverage glucose, using the formula of the O1C-CkaufgwVsjpffm Glucose study (ADAG), Diabetes Care, Vol.31,#8,2007 Blood Venous blood specimen / Unknown 04/01/2025 9:36 AM EST 04/01/2025 11:16 AM EST us Veronica Arthur MD LAB BLOOD ORDERABLES Fin al Result [facility] [address] [place] [phone] * (ABNORMAL) Comprehensive Metabolic Panel (04/01/2025 9:36 AM EST) Sodium 140 135 - 145 mmol/L [facility] Potassium 4.1 3.3 - 5.1 mmol/L [facility] Chloride 111(H) 96 - 108 mmol/L [facility] Carbon Dioxide 24 22 - 29 mmol/L [facility] Anion Gap 9(L) 12 - 20 [facility] Urea Nitrogen (BUN) 23(H) 9 - 16 mg/dL [facility] Creatinine, Serum 0.92 0.5 - 1.4 mg/dL [facility] Estimated Glomerular Filt Rate >60 [facility] Comment:Chronic Kidney Disea se: Estimated GFR < 60 mL/min/1.17i2Mdsoct Kidney Disease: Estimated GFR < 15 mL/min/1.73m2 Glucose 84 60 - 115 mg/dL [facility] Calcium 9.0 8.4 - 10.2 mg/dL [facility] Bilirubin, Total 0.4 0.0 - 1.0 mg/dL [facility] Aspartate Amino Transferase 19 5 - 31 U/L [facility] Alanine Aminotransferase 12 0 - 31 U/L [facility] Total Protein 7.4 6.5 - 8.0 g/dL [facility] Albumin Level 4.3 3.5 - 5.0 g/dL [facility] Alkaline Phosphatase 63 39 - 117 U/L [facility] Blood Venous blood specimen / Unknown 04/01/2025 9:36 AM EST 04/01/2025 11:16 AM EST us Veronica Arthur MD LAB BLOOD ORDERABLES Fin al Result [facility] [address] [place] [phone] * XR Foot 3+ Views Right (03/25/2025 12:58 PM EST) Anatomical Region Laterality Modality Lower Extremities, Foot Right Radiogra phic Imaging 03/25/2025 12:5 8 PM EST Narrative 03/25/2025 1:33 PM EST [address] [address] XRay Report Signed Patient: Larry López MR#: [id number] 7 : 1985 Acct:[id number] Age/Sex: 39 / F ADM Date: 03/25/25 Loc: .HHCX Attending Dr: Veronica Arthur MD Ordering Physician: Veronica Arthur MD Date of Service: 03/25/25 Procedure(s): XR foot RT min 3V Accession Number(s): [id number] cc: Veronica Arthur MD Reason for Exam: [...] Juan Hackett MD 03/25/2025 01:30 PM EST RP Dictated By: Juan Hackett MD Signed By: <Electronically signed by Juan Hackett MD in OV> 03/25/25 1330 DD/ 1258 TD/TT: 03/25/25 1306 Health And Safety Representative: [facility] [place] Note Donotuseinterpreter, Image - 03/25/[address] [address] XRay Report Signed Patient: Larry LópezMR#: [id number] 7 : 1985Acct:[id number] Age/Sex: 39 / FADM Date: 03/25/25 Loc: HO.HHCX Attending Dr: Veronica Arthur MD Ordering Physician: Veronica Arthur MD Date of Service: 03/25/25 Procedure(s): XR foot RT min 3V Accession Number(s): [id number] cc: Veronica Arthur MD Reason for Exam: [...] Juan Hackett MD 03/25/2025 01:30 PM EST RP Dictated By: Juan Hackett MD Signed By: <Electronically signed by Juan Hackett MD in OV> 03/25/25 1330 DD/ 1258 TD/TT: 03/25/25 1306 Health And Safety Representative: BENITEZ Veronica Arthur MD IMG XR PROCEDURES Final Result * XR Foot 3+ Views Left (03/25/2025 12:56 PM EST) Anatomical Region Laterality Modality Lower Extremities, Foot Left Radiogra phic Imaging 03/25/2025 12:5 6 PM EST Narrative 03/25/2025 1:33 PM EST [facility] [address] [place] [address] XRay Report Signed Patient: Larry López MR#: [id number] 7 : 1985 Acct:[id number] Age/Sex: 39 / F ADM Date: 03/25/25 [facility] Dr: Veronica Arthur MD Ordering Physician: Veronica Arthur MD Date of Service: 03/25/25 Procedure(s): XR foot LT min 3V Accession Number(s): [id number] cc: Veronica Arthur MD Reason for Exam: [...] Juan Hackett MD 03/25/2025 01:30 PM EST RP Dictated By: Juan Hackett MD Signed By: <Electronically signed by Juan Hackett MD in OV> 03/25/25 1330 DD/ 1256 TD/TT: 03/25/25 1306 Health And Safety Representative: BENITEZ Procedure Note Donotuseinterpreter, Image - 03/25/2025 [place] [address] XRay Report Signed Patient: Larry LópezMR#: [id number] 7 : 1985Acct:[id number] Age/Sex: 39 / FADM Date: 03/25/25 [facility] Dr: Veronica Arthur MD Ordering Physician: Veronica Arthur MD Date of Service: 03/25/25 Procedure(s): XR foot LT min 3V Accession Number(s): [id number] cc: Veronica Arthur MD Reason for Exam: [...] Juan Hackett MD 03/25/2025 01:30 PM EST RP Dictated By: Juan Hackett MD Signed By: <Electronically signed by Juan Hackett MD in OV> 03/25/25 1330 DD/ 1256 TD/TT: 03/25/25 1306 Health And Safety Representative: BENITEZ Veronica Arthur MD IMG XR PROCEDURES Final Result from Last 3 Months Insurance [facility] C3 Care Teams Dry Box Tender Relationship Specialty Start Date End Date Veronica Arthur MD [address] [place] [phone] PCP - General Internal Medicine 03/25/25
== END 2025-04-18 14:15 | disposition home or self-care (01) ==
LOC: HO.HHCL 14:14
PROVIDERS: PCP Internal Medicine; Visit Provider Internal Medicine
DX: R79.89 Other specified abnormal findings of blood chemistry (principal)
CPT/HCPCS: 36415; 84436; 84439; 84443; 84480; 84481